=== PATIENT | male | born 1975 | race Caucasian/White ===

== ENCOUNTER 2017-09-29 21:55 | Emergency (ER) | payer MEDICAID ==
[~2017-09-29] VITALS: Ht 167.6 cm; Wt 81.6 kg
[2017-09-29 21:55] VITALS: BP 157/90
--- NOTE | 2017-09-29 21:55 | NUR ---
42/M BIBA FOR ETOH AND ALOC. PER EMS, FAMILY REPORTS PT HAS BEEN DRINKING A LOT RECENTLY. [facility] 14, RESPONDS TO VERBAL STIMULI. DENIES ANY PAIN AT THIS TIME. DENIES N/V/D; SKIN IS PINK/WARM/DRY; LUNGS CLEAR BL; HR EVEN AND REGULAR; PT DENIES ANY FEVER, CP, SOB, OR COUGH AT THIS TIME; PATIENT STATES PAIN OF 0/10 AT THIS TIME; VSS; PATIENT POSITIONED FOR COMFORT; HOB ELEVATED; BEDRAILS UP X2; BED DOWN. ER MD MADE AWARE OF PT STATUS.
--- NOTE | 2017-09-29 21:55 | NUR ---
Patient BIBA BLS, transferred to bed 9. RN evaluating patient at bedside.
--- NOTE | 2017-09-29 21:55 | NUR ---
Dr. Mackey evaluating patient at bedside.
[2017-09-29] MEDS ORDERED: NACL 0.9% 1,000 ML IV ONE (22:05)
[2017-09-29 22:36] LABS: ANION GAP 14.9 (8-16); CARBON DIOXIDE 25.5 mmol/L (21-32); CREATININE 0.9 mg/dL (0.7-1.3); POTASSIUM 3.4 mmol/L (3.5-5.1)
[2017-09-29 22:36] LABS: BARBITURATE, URINE NEG. ng/ml (NEG <=200); BENZODIAZEPINE, URINE NEG. ng/mL (NEG <=200); CANNABINOID, URINE NEG. ng/mL (NEG <=50); COCAINE, URINE NEG. ng/mL (NEG <=300); OPIATE, URINE NEG. ng/mL (NEG <=2000); PHENCYCLIDINE SCREEN,URINE NEG. ng/mL (NEG <=25)
[2017-09-29 22:40] LABS: BASOPHILS % (AUTO) 0.3 % (0.0-2.0); EOSINOPHILS % (AUTO) 0.6 % (0.0-4.0); HEMATOCRIT 43.4 % (36-52); HEMOGLOBIN 14.8 g/dL (12.0-18.0); LYMPHOCYTES % (AUTO) 28.6 % (20.5-51.1); MEAN CORPUSCULAR HEMOGLOBIN 30 pg (27-31); MEAN CORPUSCULAR HGB CONC 34 g/dL (33-37); MEAN CORPUSCULAR VOLUME 88.1 fL (80-94); MONOCYTES # (AUTO) 0.5 K/uL (0.8-1.0); MONOCYTES % (AUTO) 6.9 % (1.7-9.3); NEUTROPHILS # (AUTO) 4.5 K/uL (1.8-7.7); NEUTROPHILS % (AUTO) 63.6 % (42.2-75.2); PLATELET COUNT (AUTO) 228 K/uL (140-450); RED BLOOD CELL COUNT(AUTO) 4.92 MIL/uL (4.20-6.10); RED CELL DISTRIBUTION WIDTH 14.4 % (11.6-13.7); WHITE BLOOD COUNT (AUTO) 7.1 K/uL (4.8-10.8)
[2017-09-29 22:42] LABS: TOTAL BILIRUBIN 0.2 mg/dL (0.0-1.0)
[2017-09-29 22:43] LABS: SALICYLATE < 2.8 mg/dL (2.8-20.0)
[2017-09-29 22:55] LABS: CREATINE KINASE MB 2.9 ng/mL (0-3.6)
--- NOTE | 2017-09-30 00:20 | NUR ---
Patient appears to be resting comfortably in bed. Vital Signs within normal limits. Respirations even and unlabored.
--- NOTE | 2017-09-30 02:20 | NUR ---
Patient appears to be resting comfortably in bed. Vital Signs within normal limits. Respirations even and unlabored.
--- NOTE | 2017-09-30 02:51 | NUR ---
pt has no ride home and no contact number of any family member. Per Dr. Mackey, okay to stay in bed until morning
[2017-09-30 02:55] VITALS: BP 124/79
--- NOTE | 2017-09-30 02:55 | NUR ---
Patient discharged with v/s stable. Written and verbal after care instructions given and explained. Patient verbalized understanding. Ambulatory with steady gait. All questions addressed prior to discharge. Advised to follow up with PMD. Addendum: 09/30/17 at 0505 by GIDEON IV removed, catheter intact and site benign. Applied folded 4x4 gauze and tape to stop bleeding.
--- NOTE | 2017-09-30 03:06 | NUR ---
Note undone in EDM - 09/30/17 at 0307 by GIDEON Patient discharged with v/s stable. Written and verbal after care instructions given and explained BY DR SETH. Patient alert, oriented and verbalized understanding of instructions. Ambulatory with steady gait. All questions addressed prior to discharge. ID band removed. Patient advised to follow up with PMD. Rx of keflex and bactrim given. Patient educated on indication of medication including possible reaction and side effects. Opportunity to ask questions provided and answered. IV removed, catheter intact and site benign. Applied folded 4x4 gauze and tape to stop bleeding.
== END 2017-09-30 03:06 | disposition home or self-care (01) ==
LOC: MED 21:55
DX: F10.129 Alcohol abuse with intoxication, unspecified (principal); E87.6 Hypokalemia
CPT/HCPCS: 36415; 80053; 80305; 81002; 82550; 82553; 84484; 85025; 93005; 96360; 99285; G0480; G0482; J7030

== ENCOUNTER 2017-11-18 05:50 | Emergency (ER) | payer MEDICAID ==
[~2017-11-18] VITALS: Ht 167.6 cm; Wt 78.9 kg
[2017-11-18 05:54] VITALS: BP 139/84
--- NOTE | 2017-11-18 06:03 | NUR ---
BIB [facility] [employer] FOR PREBOOKING. NO ALLERGIES AND NO MEDICAL HX. [facility] [employer] AT BEDSIDE.
[2017-11-18 06:32] VITALS: BP 139/84
--- NOTE | 2017-11-18 06:32 | NUR ---
PATIENT BIB [employer]. PATIENT EXAMINED BY DR. HILL. PATIENT MEDICALLY CLEARED AND RELEASED IN CUSTODY IN STABLE CONDITION. ORIGINAL PRE-BOOK FORM GIVEN TO OFFICER JASIEL. VITALS STABLE UPON DC.
== END 2017-11-18 06:32 ==
LOC: MED 05:50
DX: I49.9 Cardiac arrhythmia, unspecified (principal); Z02.89 Encounter for other administrative examinations
CPT/HCPCS: 99283

== ENCOUNTER 2018-04-20 02:35 | Emergency (ER) | payer MEDICAID ==
[~2018-04-20] VITALS: Ht 167.6 cm; Wt 72.6 kg
--- NOTE | 2018-04-20 02:40 | NUR ---
PT AMBULATED TO ER BED 02
[2018-04-20 02:45] VITALS: BP 143/82
--- NOTE | 2018-04-20 02:50 | NUR ---
PT PRESENTS TO ED WITH C/O ANXIETY WITH NAUSEA SUDDEN ONSET X 1 HR. PT DENIES VOMITTING. NO SOB, NO CP AT THIS TIME. NO S/S OF DISTRESS NOTED. PT ABLE TO SPEAK IN FULL, CLEAR SENTENCES AND ANSWER QUESTIONS APPROPRIATLEY. PT PLACED INTO BED, PENDING MD ARIZA. PMH--DENIES RX--DENIES
[2018-04-20 03:06] VITALS: BP 143/82
== END 2018-04-20 03:03 | disposition home or self-care (01) ==
LOC: MED 02:35
DX: F41.9 Anxiety disorder, unspecified (principal); F17.210 Nicotine dependence, cigarettes, uncomplicated
CPT/HCPCS: 99284